=== PATIENT | male | born 1985 | race Caucasian/White ===

== ENCOUNTER 2019-02-02 20:55 | Emergency (ER) | payer MEDICAID ==
[~2019-02-02] VITALS: Ht 165.1 cm; Wt 86.0 kg
[2019-02-02 21:03] VITALS: BP 145/91; PULSE 92; RESP 18; Ht 165.1 cm; Wt 86.0 kg
[2019-02-03] MEDS ORDERED: ACETAMINOPHEN 500 MG TAB PO STA (01:21)
--- NOTE | 2019-02-03 01:23 | ERD ---
ER Documentation Chief Complaint Chief Complaint headache x 2 hours HPI This is a 33-year-old male patient who presents emergency room with complaint of headache x2 hours. Patient also has productive cough x3 days. Patient states pain is a pressure type sensation starting in his sinuses. Patient reports intermittent fevers, no shortness of breath, no chest pain, no nausea or vomiting. No recent travel, no sick contacts, no significant medical history. ROS All systems reviewed and are negative except as per history of present illness. Medications Home Meds Active Scripts Acetaminophen* (Tylophen*) 500 Mg Capsule, 2 CAP PO Q8H PRN for PAIN AND OR ELEVATED TEMP, #20 CAP Prov:FAWAD DORSEY NP 02/03/19 Ibuprofen* (Motrin*) 600 Mg Tab, 600 MG PO Q6 for 10 Days, #30 TAB Prov:FAWAD DORSEY NP 02/03/19 Doxycycline Hyclate* (Doxycycline Hyclate*) 100 Mg Tablet.dr, 100 MG PO BID for 7 Days, #14 TAB Prov:FAWAD DORSEY NP 02/03/19 Discontinued Scripts Benzonatate* (Tessalon Perle*) 100 Mg Capsule, 100 MG PO Q8H PRN for COUGH for 5 Days, #14 CAP Prov:FAWAD DORSEY NP 02/03/19 Loratadine* (Claritin*) 5 Mg Tab.rapdis, 10 MG PO DAILY for 30 Days, #30 TAB Prov:FAWAD DORSEY NP 02/03/19 Allergies Allergies: Coded Allergies: No Known Allergy (Unverified , 06/27/12) PMhx/Soc Medical and Surgical Hx: pt denies Medical Hx, pt denies Surgical Hx Hx Alcohol Use: No Hx Substance Use: No Hx Tobacco Use: No Smoking Status: Never smoker FmHx Family History: No diabetes, No coronary disease, No other Physical Exam Vitals Vital Signs Date Temp Pulse Resp B/P (MAP) Pulse Ox O2 O2 Flow FiO2 Time Delivery Rate 02/02/19 100.5 92 18 145/91 97 21:03 (109) Physical Exam Const: No acute distress Head: Atraumatic, no maxillary or frontal sinus tenderness Eyes: Normal Conjunctiva, PERRL ENT: Normal External Ears, TM clear BL, Nose with congestion, pharynx pink, moist, no lesions, no exudate, no petechiae Neck: Full range of motion. No meningismus. No lymphadenopathy Resp: + Rhonchi at right lower lobe, diffuse diminished breath sounds, no rales, no wheezing Cardio: Regular rate and rhythm, no murmurs Abd: Soft, non tender, non distended. Normal bowel sounds Skin: No petechiae or rashes Back: No midline or flank tenderness Ext: No cyanosis, or edema Neur: Awake and alert, CNII-XII intact, clear speech, steady gait Psych: Normal Mood and Affect Results 24 hrs Current Medications Medications Dose Sig/Cari Start Time Status Last (Trade) Ordered Route PRN Stop Time Admin Dose Reason Admin Ibuprofen 600 mg ONCE ONCE 02/03/19 DC 02/03/19 (Motrin) PO 01:30 01:26 02/03/19 01:31 1,000 mg ONCE STAT 02/03/19 DC 02/03/19 Acetaminophen PO 01:21 01:26 (Tylenol 02/03/19 01:23 Tab) Procedures/MDM PROCEDURES/MDM DIAGNOSTIC IMAGING: Read by radiologist. Chest x-ray IMPRESSION: Right lower lobe consolidation. -Medications: Tylenol, ibuprofen Patient tolerated medication well with no adverse reactions. Patient reported improvement in pain. MDM: This is a 33-year-old male patient who presents to the emergency room with complaint of headache and cough. Patient has elevated temperature and states he has not taken any ibuprofen or Tylenol. Patient's cough is productive, thick yellow-green sputum observed with cough. Chest x-ray reveals right lower lobe consolidation. Patient will be treated for a community-acquired pneumonia. This patient has a presentation of uncomplicated community-acquired pneumonia and appears to be appropriate for outpatient therapy, with ability to stay well- hydrated and complete an appropriate oral antibiotic course. A pneumonia severity index has been calculated and based on this result the patient falls into a low risk category for mortality. Even with such reassurances the patient has been given instructions to return immediately if any worsening in symptoms occur. DISPOSITION and PLAN: RX: Doxycycline, Ibuprofen, tylenol The patient has been discharge home to follow-up with community physician. Departure Diagnosis: Primary Impression: CAP (community acquired pneumonia) Laterality: right Lung location: lower lobe of lung Qualified Codes: J18.1 - Lobar pneumonia, unspecified organism Condition: Stable FAWAD DORSEY NP Feb 03, 2019 01:23
[2019-02-03] MEDS ORDERED: FLUT9.9S NASAL (01:28)
[2019-02-03] MEDS ORDERED: LORA5TAB4 PO (01:28)
[2019-02-03] MEDS ORDERED: BENZ-6 PO (01:28)
[2019-02-03] MEDS ORDERED: IBUPROFEN 600 MG TAB PO ONE (01:30)
[2019-02-03] MEDS ORDERED: IBUP-1542 PO (02:43)
[2019-02-03] MEDS ORDERED: ACET500C5 PO (02:43)
[2019-02-03] MEDS ORDERED: DOXY100T20 PO (02:43)
== END 2019-02-03 02:58 | disposition home or self-care (01) ==
LOC: FTE 20:55
DX: J18.1 Lobar pneumonia, unspecified organism (principal)
CPT/HCPCS: 71046; Z7502; Z7610